=== PATIENT | male | born 1945 | race Caucasian/White ===

== ENCOUNTER 2017-02-03 09:02 | Emergency (ER) | payer OTHER ==
[~2017-02-03 09:02] MED LIST: ALBU6.7H INH; ALPR-138 PO; ASPI-99 PO; ATOR20TA PO; B-COTAB35 PO; CORE6.25 PO; FLUT50SP EACH NARE; GLIM2TAB PO; GLUCTAB PO; IPRA17I INH; MULT-65 PO; NITR.4 SL; OMEG5CAP PO; SENN8.6T15 PO
[2017-02-03 09:07] VITALS: BP 188/91; PULSE 94; O2SAT 97
[2017-02-03] MEDS ORDERED: INSULIN HUMAN REGULAR 1,000 UNITS/10 ML VIAL SQ ONE (09:45)
--- NOTE | 2017-02-03 09:48 | PD ---
HPI Chief Complaint: Cardiac Complaint Time Seen by Provider: 09:28 Travel History International Travel<30 days: No Contact w/Intl Traveler<30days: No Traveled to known affect area: No History of Present Illness HPI This patient presents for hyperglycemia. He is a diabetic using oral medications for diabetes. He was recently started on prednisone for a left shoulder area strain. He Says it causes sugars to escalate. Accu-Chek right now is 406. He recently strained his left shoulder and left upper chest. Patient is on morphine from pain management. Symptoms severity is moderate. No alleviating factors PFSH Past Medical History Atrial Fibrillation: No (pt states unsure of a-fib??) Autoimmune Disease: No Blood Disorders: No Anxiety: Yes Depression: No Heart Rhythm Problems: No Cancer: No Cardiac Catheterization: Yes (STENT PLACED IN JUL 2009) Cardiovascular Problems: Yes High Cholesterol: Yes Chemotherapy: No Chest Pain: Yes Congestive Heart Failure: No Coronary Artery Disease: Yes Diabetes: Yes Diminished Hearing: No Endocrine: Yes Gastrointestinal Disorders: Yes GERD: Yes Glaucoma: No Genitourinary: No Hepatitis: No Hiatal Hernia: No Hypertension: Yes Immune Disorder: No Implanted Vascular Access Dvce: Yes Musculoskeletal: Yes Neurologic: No Psychiatric: No Reproductive: No Respiratory: No Myocardial Infarction: Yes (HEART ATTACK ) Radiation Therapy: No Sickle Cell Disease: No Thyroid Disease: No Ulcer: No PNEUMOCCOCAL Vaccine (Year): 2 Past Surgical History Abdominal Surgery: No AICD: No Appendectomy: No Arteriovenous Shunt: No Body Medical Devices: STENTS TO LAD/STERNAL WIRES Cardiac Surgery: Yes (CABG OCTOBER 2010) Cholecystectomy: No Coronary Artery Bypass Graft: Yes (NOVEMBER 11, 2010- 5 vessel bypass) Coronary Stent: Yes (JUL 2009) Ear Surgery: No Endocrine Surgery: No Eye Surgery: No Genitourinary Surgery: No Gynecologic Surgery: No Insulin Pump: No Joint Replacement: No Oral Surgery: Yes (TEETH EXTRACTIONS) Pacemaker: No Thoracic Surgery: No Other Surgery: Yes Social History Alcohol Use: No Tobacco Use: No Substance Use: No Allergies-Medications (Allergen,Severity, Reaction): Coded Allergies: No Known Allergies (Verified , 02/03/17) Reported Meds & Prescriptions Reported Meds & Active Scripts Active Glucophage (Metformin HCl) 500 Mg Tab 500 Mg PO BID DO NOT TAKE METFORMIN FOR TWO DAYS. Xanax (Alprazolam) 0.25 Mg Tab 0.25 Mg PO TID PRN Coreg (Carvedilol) 6.25 Mg Tab 6.25 Mg PO BID Proventil Hfa (Albuterol Sulfate) 6.7 Gm Aero 2 Puff INH QIDPRN NEEDED FOR SHORTNESS OF BREATH Reported Fluticasone Propionate (Nasal) 50 Mcg Spr 1 [place] EACH NARE BID PRN Senna Lax (Sennosides) 8.6 Mg Tab 8.6 Mg PO BID PRN Vitamin B50 Complex Tr (B-Complex W/Biotin & Folic Aci) Complex Tab 1 Cap[place] PO DAILY Glimepiride 2 Mg Tab 2 Mg PO DAILY Fish Oil 1200 mg ([place]-3 Fatty Acids) 1 Cap Cap 1 Cap PO BID Multi-Vitamin Daily (Multivitamins) Daily Tab 1 Tab PO DAILY Atorvastatin 20 mg tab (Atorvastatin Calcium) 20 Mg Tab 20 Mg PO HS Atrovent Hfa (Ipratropium [place]) 12.9 Gm Aero 1 Puff INH TID PRN Aspirin 81 Mg Tab 81 Mg PO DAILY Nitroglycerin 0.4 Mg Subl 0.4 Mg SL prn chest pain Review of Systems General / Constitutional: No: Fever Eyes: No: Visual changes HENT: No: Headaches Cardiovascular: Positive: Chest Pain or Discomfort Respiratory: No: Shortness of Breath Gastrointestinal: No: Abdominal Pain Genitourinary: No: Dysuria Musculoskeletal: Positive: Pain Skin: No Rash Neurologic: No: Weakness Psychiatric: No: Depression Endocrine: No: Polydipsia Hematologic/Lymphatic: No: Easy Bruising Physical Exam Narrative GENERAL: Well-nourished, well-developed patient in no apparent distress. SKIN: Focused skin assessment reveals no rash and nodules. Skin is Warm and dry. HEAD: Atraumatic. Normocephalic. EYES: Pupils equal and round. No scleral icterus. No injection or drainage. ENT: No nasal bleeding or discharge. Mucous membranes pink and moist. NECK: Trachea midline. No JVD. CARDIOVASCULAR: Regular rate and rhythm. No murmur appreciated. RESPIRATORY: No accessory muscle use. Clear to auscultation. Breath sounds equal bilaterally. GASTROINTESTINAL: Abdomen soft, non-tender, nondistended. Hepatic and splenic margins not palpable. MUSCULOSKELETAL: No obvious deformities. No clubbing. No cyanosis. No edema. He has readily reproducible tenderness in the left upper pectoral area. His sternal incision is noted. Wires palpable underneath the skin. NEUROLOGICAL: Awake and alert. No obvious cranial nerve deficits. Motor grossly within normal limits. Normal speech. PSYCHIATRIC: Appropriate mood and affect; insight and judgment normal. Data Data Last Documented VS Vital Signs Date Time Temp Pulse Resp B/P Pulse Ox O2 Delivery O2 Flow Rate FiO2 02/03/17 11:04 60 18 131/85 98 Room Air Orders Electrocardiogram (02/03/17 ) Insulin Human Regular Inj (Novolin R Inj (02/03/17 09:45) MDM Medical Decision Making Medical Screen Exam Complete: Yes Emergency Medical Condition: Yes Medical Record Reviewed: Yes Differential Diagnosis Hyperglycemia, medication side effect, chronic pain Narrative Course I have reviewed the patient's electronic medical record. Patient had a negative stress test last year in the chest pain center Patient's left upper chest pain is clearly musculoskeletal and will not require further evaluation at this time I reviewed his EKG which shows sinus rhythm with no ST elevation Accu-Chek is 406 I gave him 15 units subcutaneous regular insulin Stable for outpatient follow-up. He will follow sugars closely but off of steroids that should improve. Diagnosis Primary Impression: Hyperglycemia Additional Impression: Musculoskeletal chest pain Additional Instructions: The patient was advised to follow up with their physician and return if they worsen. Check and record blood sugar frequently; stop taking prednisone Med/Other Pt SpecificInfo: Other Disposition: 01 DISCHARGE HOME Condition: Stable Obed Lilly MD Feb 03, 2017 09:48
[2017-02-03 11:04] VITALS: BP 131/85; PULSE 60; RESP 18; O2SAT 98
--- NOTE | 2017-02-03 11:39 | EKG ---
Date Performed: 02/03/2017 Time Performed: 09:13:39 PTAGE: 71 years EKG: Sinus rhythm LOW QRS VOLTAGE IN PRECORDIAL LEADS NONSPECIFIC T-WAVE ABNORMALITY BORDERLINE ECG PREVIOUS TRACING : 02/10/2016 12.14 Compared to previous tracing, heart rate has increased. DOCTOR: Henry Watson Interpretating Date/Time 02/03/2017 11:37:16
== END 2017-02-03 11:36 | disposition home or self-care (01) ==
LOC: NEPC 09:02
DX: E11.65 Type 2 diabetes mellitus with hyperglycemia (principal); R07.89 Other chest pain; I10 Essential (primary) hypertension; K21.9 Gastro-esophageal reflux disease without esophagitis; I25.10 Atherosclerotic heart disease of native coronary artery without angina pectoris; F41.9 Anxiety disorder, unspecified; R94.31 Abnormal electrocardiogram [ECG] [EKG]; E78.00 Pure hypercholesterolemia, unspecified; Z79.899 Other long term (current) drug therapy
CPT/HCPCS: 93005; 96372; 99284; J1815

== ENCOUNTER 2018-01-06 08:57 | Emergency (ER) | payer OTHER ==
[~2018-01-06] VITALS: Ht 170.2 cm; Wt 100.0 kg
[2018-01-06 09:00] VITALS: BP 184/102; PULSE 68; RESP 24; TEMP 98.8; O2SAT 97
[2018-01-06 09:11] VITALS: BP 191/84; PULSE 69; RESP 20; O2SAT 98
[2018-01-06] MEDS ORDERED: SODIUM CHLORIDE 0.9% FLUSH 10 ML FLUSH IVF PRN (09:30)
[2018-01-06] MEDS ORDERED: cloNIDine HCL 0.2 MG TAB PO ONE (09:30)
--- NOTE | 2018-01-06 09:30 | PD ---
HPI Chief Complaint: Hypertension Time Seen by Provider: 09:13 Travel History International Travel<30 days: No Contact w/Intl Traveler<30days: No Traveled to known affect area: No History of Present Illness HPI This patient came to the ER because his blood pressure was running very high. It is currently 190s systolic. Patient is supposed to be on antihypertensives but he quit taking them 6 months ago and never told his doctor. He has chronic daily chest pain for the last 10 years and takes morphine 4 times a day for it. His chest pain is no different today than always. No headache or presyncopal symptoms. Severity is moderate. No alleviating factors. Symptoms exacerbated by his noncompliance PFSH Past Medical History Atrial Fibrillation: Yes (pt states unsure of a-fib??) Autoimmune Disease: No Blood Disorders: No Anxiety: Yes Depression: No Heart Rhythm Problems: No Cancer: No Cardiac Catheterization: Yes (STENT PLACED IN JUL 2009) Cardiovascular Problems: Yes (5 BYPASS) High Cholesterol: Yes Chemotherapy: No Chest Pain: Yes Congestive Heart Failure: No Cerebrovascular Accident: Yes Coronary Artery Disease: Yes Diabetes: Yes Patient Takes Glucophage: No Diminished Hearing: No Endocrine: Yes Gastrointestinal Disorders: Yes GERD: Yes Glaucoma: No Genitourinary: No Hepatitis: No Hiatal Hernia: No Hypertension: Yes Immune Disorder: No Implanted Vascular Access Dvce: Yes Musculoskeletal: Yes Neurologic: No Psychiatric: No Reproductive: No Respiratory: No Myocardial Infarction: Yes (HEART ATTACK ) Radiation Therapy: No Sickle Cell Disease: No Thyroid Disease: No Ulcer: No Tetanus Vaccination: Never Vaccinated PNEUMOCCOCAL Vaccine (Year): 2 Past Surgical History Abdominal Surgery: No AICD: No Appendectomy: No Arteriovenous Shunt: No Body Medical Devices: STENTS TO LAD/STERNAL WIRES Cardiac Surgery: Yes (CABG OCTOBER 2010) Cholecystectomy: No Coronary Artery Bypass Graft: Yes (NOVEMBER 11, 2010- 5 vessel bypass) Coronary Stent: Yes (JUL 2009) Ear Surgery: No Endocrine Surgery: No Eye Surgery: No Genitourinary Surgery: No Gynecologic Surgery: No Insulin Pump: No Joint Replacement: No Oral Surgery: Yes (TEETH EXTRACTIONS) Pacemaker: No Thoracic Surgery: No Other Surgery: Yes Family History Family Myocardial Infarction: Yes Social History Alcohol Use: No Tobacco Use: No Substance Use: No Allergies-Medications (Allergen,Severity, Reaction): Coded Allergies: No Known Allergies (Verified Adverse Reaction, Unknown, 01/06/18) Reported Meds & Prescriptions Reported Meds & Active Scripts Active Active Prescriptions or Reported Medications Unobtainable Review of Systems General / Constitutional: No: Fever Eyes: No: Visual changes HENT: No: Headaches Cardiovascular: Positive: Chest Pain or Discomfort Respiratory: No: Shortness of Breath Gastrointestinal: No: Abdominal Pain Genitourinary: No: Dysuria Musculoskeletal: No: Pain Skin: No Rash Neurologic: No: Weakness Psychiatric: No: Depression Endocrine: No: Polydipsia Hematologic/Lymphatic: No: Easy Bruising Physical Exam Narrative GENERAL: Well-nourished, well-developed patient in no apparent distress. SKIN: Focused skin assessment reveals no rash and nodules. Skin is Warm and dry. HEAD: Atraumatic. Normocephalic. EYES: Pupils equal and round. No scleral icterus. No injection or drainage. ENT: No nasal bleeding or discharge. Mucous membranes pink and moist. NECK: Trachea midline. No JVD. CARDIOVASCULAR: Regular rate and rhythm. No murmur appreciated. RESPIRATORY: No accessory muscle use. Clear to auscultation. Breath sounds equal bilaterally. GASTROINTESTINAL: Abdomen soft, non-tender, nondistended. Hepatic and splenic margins not palpable. MUSCULOSKELETAL: No obvious deformities. No clubbing. No cyanosis. No edema. Prominent readily reproducible chest wall tenderness in the sternal region and left upper chest NEUROLOGICAL: Awake and alert. No obvious cranial nerve deficits. Motor grossly within normal limits. Normal speech. PSYCHIATRIC: Appropriate mood and affect; insight and judgment normal. Data Data Last Documented VS Vital Signs Date Time Temp Pulse Resp B/P (MAP) Pulse Ox O2 Delivery O2 Flow Rate FiO2 01/06/18 10:04 68 18 96 Room Air 01/06/18 09:00 98.8 Orders Orders Electrocardiogram (01/06/18 09:22) Basic Metabolic Panel (Bmp) (01/06/18 09:22) Ckmb (Isoenzyme) Profile (01/06/18 09:22) Complete Blood Count With Diff (01/06/18 09:22) Troponin I (01/06/18 09:22) Ecg Monitoring (01/06/18 09:22) Iv Access Insert/Monitor (01/06/18:22) Oximetry (01/06/18 09:22) Sodium Chloride 0.9% Flush (Ns Flush) (6/15/18 09:30) Clonidine (Catapres) (01/06/18 09:30) CKMB (01/06/18 09:25) CKMB% (01/06/18 09:25) Labs Laboratory Tests Test 01/06/18 09:25 White Blood Count 9.6 TH/MM3 Red Blood Count 4.81 MIL/MM3 Hemoglobin 13.8 GM/DL Hematocrit 41.1 % Mean Corpuscular Volume 85.5 FL Mean Corpuscular Hemoglobin 28.8 PG Mean Corpuscular Hemoglobin Concent 33.6 % Red Cell Distribution Width 14.1 % Platelet Count 266 TH/MM3 Mean Platelet Volume 7.6 FL Neutrophils (%) (Auto) 66.9 % Lymphocytes (%) (Auto) 22.7 % Monocytes (%) (Auto) 7.2 % Eosinophils (%) (Auto) 2.2 % Basophils (%) (Auto) 1.0 % Neutrophils # (Auto) 6.4 TH/MM3 Lymphocytes # (Auto) 2.2 TH/MM3 Monocytes # (Auto) 0.7 TH/MM3 Eosinophils # (Auto) 0.2 TH/MM3 Basophils # (Auto) 0.1 TH/MM3 CBC Comment DIFF FINAL Differential Comment Blood Urea Nitrogen 17 MG/DL Creatinine 1.20 MG/DL Random Glucose 132 MG/DL Calcium Level 9.0 MG/DL Sodium Level 134 MEQ/L Potassium Level 4.6 MEQ/L Chloride Level 100 MEQ/L Carbon Dioxide Level 25.2 MEQ/L Anion Gap 9 MEQ/L Estimat Glomerular Filtration Rate 60 ML/MIN Total Creatine Kinase 117 U/L Creatine Kinase MB 1.6 NG/ML Troponin I LESS THAN 0.02 NG/ML MDM Medical Decision Making Medical Screen Exam Complete: Yes Emergency Medical Condition: Yes Medical Record Reviewed: Yes Differential Diagnosis Accelerated hypertension, noncompliance, chest wall pain, ACS Narrative Course I have reviewed the patient's electronic medical record. Patient had a negative stress test in 2016. Patient has chronic chest wall pain every day for many years. It is unchanged today and readily reproducible with palpation I reviewed his EKG which shows sinus rhythm but no ST elevation or act Extended cardiac monitoring reveals sinus rhythm without ectopy IV placed and labs sent I gave him a dose of clonidine and will reassess his blood pressure Pressure has gone from 190s-170s I wrote him a month of blood pressure medication CBC and metabolic profiles are normal Diagnosis Primary Impression: Accelerated hypertension Additional Impression: Chest pain Qualified Codes: R07.9 - Chest pain, unspecified Additional Instructions: Check and record blood pressure daily The patient was advised to follow up with their physician and return if they worsen. Med/Other Pt SpecificInfo: Prescription(s) given Scripts Hydrochlorothiazide (Hydrochlorothiazide) 12.5 Mg Cap 12.5 MG PO DAILY, #30 CAP 0 Refills Prov: Obed Lilly MD 01/06/18 Disposition: DISCHARGE HOME Condition: Stable Obed Lilly MD Jan 06, 2018 09:30
[2018-01-06 09:42] LABS: AUTOMATED NEUTROPHIL # 6.4 TH/MM3 (1.8-7.7); BASOPHIL # 0.1 TH/MM3 (0-0.2); EOSINOPHIL # 0.2 TH/MM3 (0-0.4); EOSINOPHIL % 2.2 % (0.0-4.0); HEMATOCRIT 41.1 % (39.0-51.0); HEMOGLOBIN 13.8 GM/DL (13.0-17.0); LYMPH % 22.7 % (9.0-44.0); LYMPHOCYTE # 2.2 TH/MM3 (1.0-4.8); MEAN CELL VOLUME 85.5 FL (80.0-100.0); MEAN CORPUSCULAR HEMOGLOBIN 28.8 PG (27.0-34.0); MEAN CORPUSCULAR HGB CONC 33.6 % (32.0-36.0); MEAN PLATELET VOLUME 7.6 FL (7.0-11.0); MONO % 7.2 % (0.0-8.0); MONOCYTE # 0.7 TH/MM3 (0-0.9); NEUT % 66.9 % (16.0-70.0); PLATELET COUNT 266 TH/MM3 (150-450); RED BLOOD COUNT 4.81 MIL/MM3 (4.50-5.90); RED CELL DISTRIBUTION WIDTH 14.1 % (11.6-17.2); WHITE BLOOD COUNT 9.6 TH/MM3 (4.0-11.0)
[2018-01-06 10:03] LABS: TROPONIN I LESS THAN 0.02 NG/ML (0.02-0.05)
[2018-01-06 10:04] VITALS: BP 156/85; PULSE 68; RESP 18; O2SAT 96
[2018-01-06 10:27] LABS: BICARBONATE 25.2 MEQ/L (21.0-32.0); BLOOD UREA NITROGEN 17 MG/DL (7-18); CHLORIDE 100 MEQ/L (98-107); GLOMERULAR FILTRATION RATE 60 ML/MIN (>89); GLUCOSE,RANDOM 132 MG/DL (74-106); SODIUM (NA) 134 MEQ/L (136-145)
[2018-01-06] MEDS ORDERED: HYDR12.57 PO (11:31)
[2018-01-06 11:37] VITALS: BP 170/80
--- NOTE | 2018-01-06 16:17 | EKG ---
Date Performed: 01/06/2018 Time Performed: 08:10:53 PTAGE: 72 years EKG: Sinus rhythm WITH SINUS ARRHYTHMIA NORMAL ECG PREVIOUS TRACING : 01/06/2018 08.10 No significant change from previous tracing noted. DOCTOR: Henry Watson Interpretating Date/Time 01/06/2018 16:16:36
== END 2018-01-06 11:45 | disposition home or self-care (01) ==
LOC: NEPE 08:57
DX: I10 Essential (primary) hypertension (principal); R07.9 Chest pain, unspecified
CPT/HCPCS: 80048; 82550; 82552; 84484; 85025; 93005; 99284